=== PATIENT | female | born 1940 | race Caucasian/White ===

== ENCOUNTER 2018-01-11 20:17 | Inpatient (IN) | payer MEDICARE, OTHER ==
[2018-01-11] MEDS ORDERED: NORMAL SALINE 1000 ML 1,000 ML IV ONE ×2 (22:11)
[2018-01-11] MEDS ORDERED: ACETAMINOPHEN 325 MG TABLET PO ONE (22:12)
[2018-01-11 22:21] LABS: ABSOLUTE EOSINOPHILS # (AUTO) 0.1 10^3/uL (0.0-0.6); ABSOLUTE LYMPHOCYTES (AUTO) 1.3 10^3/uL (0.5-4.7); ABSOLUTE MONOCYTES (AUTO) 0.9 10^3/uL (0.1-1.4); ABSOLUTE NEUT (AUTO) 11.3 10^3/uL (1.7-8.2); BASOPHILS % (AUTO) 0.3 % (0-2); HEMATOCRIT 39.2 % (36.0-47.0); HEMOGLOBIN 13.1 g/dL (12.0-15.5); LYMPHOCYTES % (AUTO) 9.8 % (13-45); MEAN CORPUSCULAR HEMOGLOBIN 31.8 pg (27.0-33.4); MEAN CORPUSCULAR HGB CONC 33.5 g/dL (32.0-36.0); MEAN CORPUSCULAR VOLUME 95 fl (80-97); MONOCYTES % (AUTO) 6.6 % (3-13); PLATELET COUNT 411 10^3/uL (150-450); RED BLOOD COUNT 4.13 10^6/uL (3.72-5.28); RED CELL DISTRIBUTION WIDTH 13.6 % (11.5-14.0); SEGMENTED NEUTROPHILS % (AUTO) 82.3 % (42-78); TOTAL CELLS COUNTED % (AUTO) 100 %; WHITE BLOOD COUNT 13.7 10^3/uL (4.0-10.5)
[2018-01-11] MEDS ORDERED: CEFEPIME 2 GM/D5W RTU 2 GM/50 ML RTUPB IV ONE (22:22)
[2018-01-11 22:27] LABS: INTERNATIONAL RATION (INR) 1.04; PROTHROMBIN TIME 14.1 SEC (11.4-15.4)
--- NOTE | 2018-01-11 22:27 | EKG REPORT ---
SEVERITY:- BORDERLINE ECG - SINUS RHYTHM PROBABLE LEFT ATRIAL ABNORMALITY : Confirmed by: Dayanara Cho MD 11-Jan-2018 22:26:48
--- NOTE | 2018-01-11 22:39 | ER Document Report ---
ED Respiratory Problem - General Chief Complaint: Shortness Of Breath Stated Complaint: LEFT ARM PAIN Time Seen by Provider: 01/11/18 21:40 Notes: Pt. is a 77-year-old female presenting to the emergency department complaining of shortness of breath and chest pain. Patient stated on 01/08 she went to [place] emergency department was diagnosed with pneumonia. Patient stated she was put on Cipro and has been taking it for the last 3 days. Patient states that she feels as though she has had chills and a subjective fever for the last 10 days today took her temperature and it was 102.5 Fahrenheit. Stated she was having intermittent chest pressure moving down her left arm and into her left neck. Currently is stating she has no chest discomfort. Patient admits to URI symptoms, fever, posttussive vomiting, body aches, headache, joint pain. Patient denies any diarrhea or body rashes, also denies abdominal pain, dysuria. Patient has an extensive history of Lyme's disease since 1990 and thought she was having a Lyme's flareup 2 weeks ago and called her physician in [place] who put her on doxy. Patient stated she was to take Doxy twice a day for 2 weeks and just finished her last dose this morning. Patient states she has felt worn down for the last 2 weeks. Also admits to being exposed to " toxic mold" in her house. Patient denies any hospital admissions over the last 3 months. Past medical history: Lyme's disease, hypothyroid, migraines, arthritis Medications: Imitrex, Synthroid, progesterone, estrogen implant Allergies: Rocephin (Pt. stated she was on Rocephin for over a week IV and had an increase in her liver enzymes. Pt. denied rash, itching, or trouble breathing ) TRAVEL OUTSIDE OF THE [place] IN LAST 30 DAYS: No - Related Data Allergies/Adverse Reactions: ceftriaxone [From Rocephin] Allergy (Verified 01/12/18 05:53) Past Medical History - Social History Smoking Status: Never Smoker Drug Abuse: None Lives with: Family Family History: Reviewed & Not Pertinent Patient has suicidal ideation: No Patient has homicidal ideation: No Renal/ Medical History: Denies: Hx Peritoneal Dialysis Review of Systems - Review of Systems Constitutional: See HPI EENT: See HPI Cardiovascular: See HPI Respiratory: See HPI Gastrointestinal: See HPI Genitourinary: See HPI Female Genitourinary: No symptoms reported Musculoskeletal: No symptoms reported Skin: No symptoms reported Hematologic/Lymphatic: No symptoms reported Neurological/Psychological: No symptoms reported Physical Exam - Vital signs Vitals: Temp Pulse Resp BP Pulse Ox 100.5 F H 100 18 122/61 94 01/11/18 20:36 01/11/18 20:36 01/11/18 20:36 01/11/18 20:36 01/11/18 20:36 - Notes Notes: GENERAL: Alert, interacts well. No acute distress. Non-Toxic appearing HEAD: Normocephalic, atraumatic. FROM neck but pt. does admit to pain back of her head down her cervical neck, denies trauma. EYES: Pupils equal, round, and reactive to light. Extraocular movements intact. ENT: Oral mucosa moist, tongue midline. NECK: Full range of motion. Supple. Trachea midline. Pt. admits to pain left side of neck (paraspinal) and stated some "stiffness" in her cervical neck and into her occiput. Denies trauma. LUNGS: Slightly diminished bilateral bases no active wheeze, rales or rhonchi heard. No respiratory distress. HEART: Regular rate and rhythm. No murmur ABDOMEN: Soft, non-tender. Non-distended. Bowel sounds present in all 4 quadrants. EXTREMITIES: Moves all 4 extremities spontaneously. No edema, normal radial and dorsalis pedis pulses bilaterally. No cyanosis. BACK: no cervical, thoracic, lumbar midline tenderness. No saddle anesthesia, normal distal neurovascular exam. NEUROLOGICAL: Alert and oriented x3. Normal speech. PSYCH: Normal affect, normal mood. SKIN: Warm, dry, normal turgor. No rashes or lesions noted. Course - Re-evaluation Re-evalutation: Discussed with Pt. due to her leukocytosis without signs of pneumonia, urinary tract infection, skin infection, abdominal pain (abdominal infection) a lumbar puncture is recommended. Patient stated she was actually going to ask staff if we could do a lumbar puncture in hopes to find a source of her fever. LP unsuccessful, due to Pt. presention with headache and neck pain/stiffness, likely viral meningitis. Pt. Alert and oriented the entire time in ED, non toxic , nonencephalopathic. Discussed Pt. presentation with Dr. Barbosa who also agrees with admit. Dr. Restrepo contacted who stated she will see the pt. in the ED, no other orders at this time. - Vital Signs Vital signs: Temp Pulse Resp BP Pulse Ox 97.9 F 100 15 119/77 95 01/12/18 03:25 01/11/18 20:54 01/12/18 05:01 01/12/18 05:01 01/12/18 05:01 - Laboratory Result Diagrams: 01/11/18 22:03 01/11/18 22:03 Laboratory results interpreted by me: 01/11/18 01/11/18 01/11/18 22:03 22:03 22:16 WBC 13.7 H Seg Neutrophils % 82.3 H Lymphocytes % 9.8 L Absolute Neutrophils 11.3 H Sodium 135.8 L Glucose 126 H AST 38 H Ur Leukocyte Esterase TRACE H Procedures - Lumbar Puncture Lumbar puncture Consent obtained: Yes Lumbar puncture pre-procedure: Sterile PPE donned, Betadine prep applied Patient position: Sitting Needle size: 22 Lumbar puncture location: L4 Anesthetic type: 1% Lidocaine mL's of anesthetic: 3 Number of attempts: 2 Complications: No Notes: unable to obtain CSF. Pt. tolerated procedure well. Discharge - Discharge Clinical Impression: Fever Qualifiers: Fever type: unspecified Qualified Code(s): R50.9 - Fever, unspecified Headache Qualifiers: Headache type: unspecified Headache chronicity pattern: acute headache Intractability: not intractable Qualified Code(s): R51 - Headache Leukocytosis Qualifiers: Leukocytosis type: unspecified Qualified Code(s): D72.829 - Elevated white blood cell count, unspecified Condition: Stable Disposition: ADMITTED INPATIENT Admitting Provider: Hospitalist Unit Admitted: Telemetry
[2018-01-11 22:40] LABS: ALANINE AMINOTRANSFERASE 43 U/L (9-52); ALBUMIN 3.5 g/dL (3.5-5.0); ALKALINE PHOSPHATASE 104 U/L (38-126); ANION GAP 11 (5-19); ASPARTATE AMINO TRANSFERASE 38 U/L (14-36); BILIRUBIN,DIRECT 0.4 mg/dL (0.0-0.4); BILIRUBIN,TOTAL 0.5 mg/dL (0.2-1.3); BLOOD UREA NITROGEN 12 mg/dL (7-20); CARBON DIOXIDE 23 mmol/L (22-30); CHLORIDE 102 mmol/L (98-107); GLUCOSE 126 mg/dL (75-110); POTASSIUM 4.2 mmol/L (3.6-5.0); SODIUM 135.8 mmol/L (137-145); TOTAL PROTEIN 6.5 g/dL (6.3-8.2)
[2018-01-11 22:44] LABS: APPEARANCE,URINE SLIGHTLY-CLOUDY; BILIRUBIN,URINE NEGATIVE (NEGATIVE); COLOR,URINE YELLOW; GLUCOSE, URINE NEGATIVE (NEGATIVE); KETONES,URINE NEGATIVE (NEGATIVE); LEUKOCYTE ESTERASE,URINE TRACE (NEGATIVE); NITRITE,URINE NEGATIVE (NEGATIVE); PROTEIN,URINE NEGATIVE (NEGATIVE); URINE SPECIFIC GRAVITY 1.006; UROBILINOGEN,URINE NEGATIVE mg/dL (<2.0)
[2018-01-11 23:05] LABS: CREATINE KINASE MB 0.56 ng/mL (<4.55); TROPONIN I < 0.012 ng/mL
[2018-01-11 23:09] LABS: CREATINE KINASE 111 U/L (30-135)
[2018-01-11] MEDS ORDERED: METOCLOPRAMIDE HCL INJ/PF 10 MG/2 ML SDV IV ONE (23:50)
[2018-01-12 00:41] LABS: VENOUS BLOOD BASE EXCESS -1.7 mmol/L; VENOUS BLOOD PH 7.39 (7.30-7.42)
--- NOTE | 2018-01-12 00:53 | RADIOLOGY REPORT (SQ) ---
Chest single view on 01/11/2018 at 10:33 PM CLINICAL INDICATION: Shortness of breath COMPARISON: None FINDINGS: There is minimal basilar atelectasis. Biapical scarring is noted. The lungs are otherwise clear. Cardiac, hilar and mediastinal contours are within normal limits. Pulmonary vascularity is within normal limits. No bony abnormality is noted. IMPRESSION: No acute disease.
[2018-01-12] MEDS ORDERED: LIDOCAINE 1% INJ-PF (10 MG/ML) 30 ML SDV INJ ONE (01:29)
[2018-01-12] MEDS ORDERED: OXYCODONE-ACETAMINOPHEN 5-325 MG TABLET PO ONE (03:12)
[2018-01-12] MEDS ORDERED: ACETAMINOPHEN 325 MG TABLET PO PRN (05:11)
[2018-01-12] MEDS ORDERED: MAG HYDROX/AL HYDROX/SIMETH SUSP 30 ML UDCUP PO PRN (05:11)
[2018-01-12] MEDS ORDERED: PROMETHAZINE HCL 25 MG TABLET PO PRN (05:11)
[2018-01-12] MEDS ORDERED: PROMETHAZINE HCL INJ 25 MG/1 ML VIAL IV PRN (05:11)
--- NOTE | 2018-01-12 05:59 | PDOC H&P ---
History of Present Illness Admission Date/PCP: 01/12/18 03:08 Michelle Bernal MD Patient complains of: Fever History of Present Illness: ILYA HOLLAND is a 77 year old female who comes to the emergency department complaining of shaking chills and feeling cold intermittently for about 3 weeks. Last Tuesday she started with cough, subjective fever, bilateral ear pain , sore throat, sweating, dry mouth, chills and shaking, she did not take her temperature, on Tuesday she went to [place] as per symptoms persisted and an x- ray was done and she was told that she has pneumonia, she was placed on ciprofloxacin and sent home. She was told if she was not feeling better in 48 hours to call her family physician, she did was not in town and was sent to the emergency department. Tells me that she is still have some cough with pinkish phlegm, before was yellowish, tells me that she to her temperature at home and was 102,5 in the afternoon, has been having some wheezing on and off, shortness of breath on and off. Also has been complaining of headache and some stiff neck that by the time he went to see her has almost resolved. Slice chest pressure. Give me history of epidural injection a few months ago and since then she has not been feeling good woozy, dizzy. Tells me she has history of Lyme disease with relapsed 3, she thought symptoms were secondary to this, her PCP placed her on doxycycline for 2 weeks, last pill was a couple of days ago. Tells me that she has had mold problems in her house. Chest x-ray in the ED negative, T-max 100.5 Past Medical History Neurological Medical History: Reports: Migraine Endocrine Medical History: Reports: Hypothyroidism Musculoskeltal Medical History: Reports: Arthritis Infectious Medical History: Denies: Other Infectious History Note: Lyme disease Past Surgical History Past Surgical History: Reports: Cholecystectomy, Hysterectomy Social History Lives with: Family Smoking Status: Never Smoker Frequency of Alcohol Use: None Hx Recreational Drug Use: No Hx Prescription Drug Abuse: No Family History Family History: Reviewed & Not Pertinent Family History: Mother at 63 years old with liver cirrhosis. She does not know about her father Parental Family History Reviewed: Yes - As above Children Family History Reviewed: NA Sibling(s) Family History Reviewed.: NA Medication/Allergy Allergies/Adverse Reactions: ceftriaxone [From Rocephin] Allergy (Verified 01/12/18 05:53) Review of Systems Review of Systems: As outlined above, others negative Physical Exam Vital Signs: Temp Pulse Resp BP Pulse Ox 97.9 F 100 15 119/77 95 01/12/18 03:25 01/11/18 20:54 01/12/18 05:01 01/12/18 05:01 01/12/18 05:01 Additional comments: General appearance: Well-developed, well-nourished, alert and cooperative, and appears to be in no acute distress Head: Normocephalic Eyes: PEERL, EOMI, vision is grossly intact. Ears: External auditory canal and tympanic membranes clear, hearing grossly intact. Nose: No nasal discharge. Throat: Oral cavity and pharynx normal. No inflammation, swelling, exudate or lesions. Neck: Neck supple, nontender without lymphadenopathy, masses or thyromegaly. Cardiac: Normal S1 and S2. No S3, S4 or murmurs. Rhythm is regular. There is no peripheral edema, cyanosis or pallor. Extremities are warm and well perfused. Capillary refill is less than 2 seconds. No carotid bruits. Lungs: Bilateral mild wheezing without rales, rhonchi, or diminished breath sounds. Not using accessory muscles. Abdomen: Positive bowel sounds. Soft. Nondistended, nontender. No guarding or rebound. No masses. No hepatosplenomegaly Extremities: No significant deformity or joint abnormality. No edema. Peripheral pulses intact. No varicosities. Neurological: Cranial nerves II through XII grossly intact. Strength and sensation symmetric and intact throughout. Reflexes 2+ throughout. Skin: Skin normal color, texture and turgor with no lesions or eruptions, warm and dry. Psychiatric: The mental examination revealed the patient was oriented to person , place, and time. The patient was able to demonstrate good judgment on recent , without hallucinations, abnormal affect or abnormal behaviors. Results EKG Comments: 01/11/18 01/11/18 01/11/18 22:03 22:03 22:03 WBC 13.7 H RBC 4.13 Hgb 13.1 Hct 39.2 MCV 95 MCH 31.8 MCHC 33.5 RDW 13.6 Plt Count 411 Seg Neutrophils % 82.3 H Lymphocytes % 9.8 L Monocytes % 6.6 Eosinophils % 1.0 Basophils % 0.3 Absolute Neutrophils 11.3 H Absolute Lymphocytes 1.3 Absolute Monocytes 0.9 Absolute Eosinophils 0.1 Absolute Basophils 0.0 PT 14.1 INR 1.04 VBG pH VBG pCO2 VBG HCO3 VBG Base Excess Sodium 135.8 L Potassium 4.2 Chloride 102 Carbon Dioxide 23 Anion Gap 11 BUN 12 Creatinine 0.74 Est GFR ( Amer) > 60 Est GFR (Non-Af Amer) > 60 Glucose 126 H Calcium 10.0 Total Bilirubin 0.5 Direct Bilirubin 0.4 AST 38 H ALT 43 Alkaline Phosphatase 104 Creatine Kinase 111 CK-MB (CK-2) Troponin I Total Protein 6.5 Albumin 3.5 Urine Color Urine Appearance Urine pH Ur Specific [place] Urine Protein Urine Glucose (UA) Urine Ketones Urine Blood Urine Nitrite Urine Bilirubin Urine Urobilinogen Ur Leukocyte Esterase Urine WBC (Auto) Urine RBC (Auto) Squamous Epi Cells Auto Urine Ascorbic Acid 01/11/18 01/11/18 01/12/18 22:03 22:16 00:30 WBC RBC Hgb Hct MCV MCH MCHC RDW Plt Count Seg Neutrophils % Lymphocytes % Monocytes % Eosinophils % Basophils % Absolute Neutrophils Absolute Lymphocytes Absolute Monocytes Absolute Eosinophils Absolute Basophils PT INR VBG pH 7.39 VBG pCO2 39.0 VBG HCO3 23.0 VBG Base Excess -1.7 Sodium Potassium Chloride Carbon Dioxide Anion Gap BUN Creatinine Est GFR ( Amer) Est GFR (Non-Af Amer) Glucose Calcium Total Bilirubin Direct Bilirubin AST ALT Alkaline Phosphatase Creatine Kinase CK-MB (CK-2) 0.56 Troponin I < 0.012 Total Protein Albumin Urine Color YELLOW Urine Appearance SLIGHTLY-CLOUDY Urine pH 6.0 Ur Specific [place] 1.006 Urine Protein NEGATIVE Urine Glucose (UA) NEGATIVE Urine Ketones NEGATIVE Urine Blood NEGATIVE Urine Nitrite NEGATIVE Urine Bilirubin NEGATIVE Urine Urobilinogen NEGATIVE Ur Leukocyte Esterase TRACE H Urine WBC (Auto) 6 Urine RBC (Auto) 1 Squamous Epi Cells Auto 12 Urine Ascorbic Acid NEGATIVE 01/12/18 02:41 WBC RBC Hgb Hct MCV MCH MCHC RDW Plt Count Seg Neutrophils % Lymphocytes % Monocytes % Eosinophils % Basophils % Absolute Neutrophils Absolute Lymphocytes Absolute Monocytes Absolute Eosinophils Absolute Basophils PT INR VBG pH VBG pCO2 VBG HCO3 VBG Base Excess Sodium Potassium Chloride Carbon Dioxide Anion Gap BUN Creatinine Est GFR ( Amer) Est GFR (Non-Af Amer) Glucose Calcium Total Bilirubin Direct Bilirubin AST ALT Alkaline Phosphatase Creatine Kinase CK-MB (CK-2) Troponin I < 0.012 Total Protein Albumin Urine Color Urine Appearance Urine pH Ur Specific [place] Urine Protein Urine Glucose (UA) Urine Ketones Urine Blood Urine Nitrite Urine Bilirubin Urine Urobilinogen Ur Leukocyte Esterase Urine WBC (Auto) Urine RBC (Auto) Squamous Epi Cells Auto Urine Ascorbic Acid Impressions: Chest X-Ray 01/11/18 21:41 IMPRESSION: No acute disease. Assessment & Plan - Diagnosis (1) Fever Qualifiers: Fever type: unspecified Qualified Code(s): R50.9 - Fever, unspecified Is this a current diagnosis for this admission?: Yes Plan: Patient comes with respiratory symptoms and some general symptoms, states fever at home was 102.5, and daily 100.5. As per her history I believe she started with upper respiratory infection last Tuesday which is resolving now with reactive airway disease. It is unclear to me if she had pneumonia or not has been too soon for the infiltrates to completely resolve in the chest x-ray, will have to get the records, she might be diagnosed with clinical pneumonia. I am placing the patient on p.o. clindamycin. Do not feel that the patient needs to be on IV antibiotics however we have to follow her blood cultures. Mold at home and be playing a role in her symptomatology. Patient is non- smoker. 2 L of IV fluids given in the ED. Leukocytosis of 13.7 with left shift. There was a concern in the ED for meningitis, as she was complaining of some headaches and neck stiffness but symptoms at the time of my evaluation are not consistent with it, do not feel the patient needs an LP. Patient recently treated for a possible Lyme disease flare, completed 2 weeks of doxycycline. (2) Hypothyroidism Is this a current diagnosis for this admission?: Yes Plan: Continue with home medication - Time Time Spent: 30 to 50 Minutes
[2018-01-12] MEDS: CLINDAMYCIN HCL 150 MG CAPSULE PO SCH ×3 (06:12→22:45)
[2018-01-12] MEDS: NORMAL SALINE 1000 ML 1,000 ML IV PRN (06:12)
[2018-01-12 06:28] LABS: ABSOLUTE BASOPHILS # (AUTO) 0.1 10^3/uL (0.0-0.2); ABSOLUTE EOSINOPHILS # (AUTO) 0.4 10^3/uL (0.0-0.6); ABSOLUTE LYMPHOCYTES (AUTO) 2.8 10^3/uL (0.5-4.7); ABSOLUTE MONOCYTES (AUTO) 0.9 10^3/uL (0.1-1.4); ABSOLUTE NEUT (AUTO) 6.9 10^3/uL (1.7-8.2); BASOPHILS % (AUTO) 0.6 % (0-2); EOSINOPHILS % (AUTO) 3.5 % (0-6); HEMATOCRIT 39.8 % (36.0-47.0); HEMOGLOBIN 13.4 g/dL (12.0-15.5); MEAN CORPUSCULAR HEMOGLOBIN 32.5 pg (27.0-33.4); MEAN CORPUSCULAR HGB CONC 33.7 g/dL (32.0-36.0); MEAN CORPUSCULAR VOLUME 97 fl (80-97); MONOCYTES % (AUTO) 8.5 % (3-13); PLATELET COUNT 350 10^3/uL (150-450); RED BLOOD COUNT 4.13 10^6/uL (3.72-5.28); RED CELL DISTRIBUTION WIDTH 14.1 % (11.5-14.0); SEGMENTED NEUTROPHILS % (AUTO) 62.4 % (42-78); TOTAL CELLS COUNTED % (AUTO) 100 %; WHITE BLOOD COUNT 11.1 10^3/uL (4.0-10.5)
[2018-01-12 06:44] LABS: ANION GAP 8 (5-19); BLOOD UREA NITROGEN 11 mg/dL (7-20); CALCIUM 9.5 mg/dL (8.4-10.2); CARBON DIOXIDE 24 mmol/L (22-30); CHLORIDE 109 mmol/L (98-107); GLUCOSE 99 mg/dL (75-110); POTASSIUM 4.3 mmol/L (3.6-5.0); SODIUM 140.6 mmol/L (137-145)
[2018-01-12] MEDS: ENOXAPARIN SODIUM INJ 40 MG/0.4 ML DISP.SYRIN SUBCUT SCH (10:27)
--- NOTE | 2018-01-12 17:06 | Progress Note ---
Provider Note Provider Note: This patient was admitted early this morning by my colleague, Sophie Restrepo. The patient is resting comfortably. She states that she came in due to generalized weakness and dizziness and generally not feeling well. She also states that she had a migraine this morning. She has received Imitrex for her migraine this morning. She is awake, alert, and oriented x 3. No acute distress. Heart and lung sounds are within normal limits. The abdomen is soft, non-tender, non- distended.She complains of having upper respiratory symptoms. Will treat URI with flonase and prednisone.
[2018-01-12] MEDS: PREDNISONE 20 MG TABLET PO SCH (17:32)
[2018-01-12] MEDS: FLUTICASONE NASAL SPRAY 50 MCG/SPRY 120 SPRAY/16 GM NASL SCH (22:45)
[2018-01-13] MEDS: ZOLPIDEM TARTRATE 5 MG TABLET PO PRN ×2 (00:17→22:14)
[2018-01-13] MEDS: CLINDAMYCIN HCL 150 MG CAPSULE PO SCH ×3 (06:44→22:18)
[2018-01-13] MEDS: IPRATROPIUM/ALBUTEROL 0.5-2.5 MG/3 ML AMPUL NEB PRN (08:09)
[2018-01-13] MEDS: ENOXAPARIN SODIUM INJ 40 MG/0.4 ML DISP.SYRIN SUBCUT SCH (09:59)
[2018-01-13] MEDS: FLUTICASONE NASAL SPRAY 50 MCG/SPRY 120 SPRAY/16 GM NASL SCH ×2 (09:59→22:14)
[2018-01-13] MEDS: GUAIFENESIN SYRP 200 MG/10 ML UDC PO PRN ×2 (09:59→17:29)
[2018-01-13] MEDS: BENZONATATE 100 MG CAPSULE PO SCH ×2 (15:14→22:14)
[2018-01-13] MEDS: LEVOFLOXACIN 750 MG/D5W RTU 750 MG/150 ML RTUPB IV SCH (17:28)
[2018-01-13] MEDS: PREDNISONE 20 MG TABLET PO SCH (17:29)
[2018-01-13] MEDS: NORMAL SALINE 1000 ML 1,000 ML IV PRN (22:15)
[2018-01-14] MEDS: BENZONATATE 100 MG CAPSULE PO SCH ×3 (05:14→21:38)
[2018-01-14] MEDS: CLINDAMYCIN HCL 150 MG CAPSULE PO SCH ×3 (05:14→21:38)
[2018-01-14] MEDS: IPRATROPIUM/ALBUTEROL 0.5-2.5 MG/3 ML AMPUL NEB PRN (07:57)
[2018-01-14] MEDS: LEVOFLOXACIN 750 MG/D5W RTU 750 MG/150 ML RTUPB IV SCH (09:31)
[2018-01-14] MEDS: FLUTICASONE NASAL SPRAY 50 MCG/SPRY 120 SPRAY/16 GM NASL SCH ×2 (09:32→21:39)
[2018-01-14] MEDS: ENOXAPARIN SODIUM INJ 40 MG/0.4 ML DISP.SYRIN SUBCUT SCH (09:37)
--- NOTE | 2018-01-14 11:11 | PDOC PROGRESS REPORT ---
Subjective Progress Note for:: 01/13/18 Subjective:: Still c/o cough and headache Reason For Visit: FEVER Physical Exam Vital Signs: Temp Pulse Resp BP Pulse Ox 97.9 F 83 14 124/62 93 01/14/18 07:22 01/14/18 07:57 01/14/18 07:57 01/14/18 07:22 01/14/18 07:57 Intake & Output 01/13/18 01/14/18 01/15/18 06:59 06:59 06:59 Intake Total 2650 Output Total 1700 Balance 950 General appearance: PRESENT: no acute distress, well-developed, well-nourished Head exam: PRESENT: atraumatic, normocephalic Eye exam: PRESENT: conjunctiva pink, EOMI, PERRLA. ABSENT: scleral icterus Ear exam: PRESENT: normal external ear exam Mouth exam: PRESENT: moist, tongue midline Neck exam: ABSENT: carotid bruit, JVD, lymphadenopathy, thyromegaly Respiratory exam: PRESENT: crackles, decreased breath sounds, rhonchi, unlabored. ABSENT: rales, wheezes Cardiovascular exam: PRESENT: RRR, +S1, +S2. ABSENT: diastolic murmur, rubs, systolic murmur Pulses: PRESENT: normal dorsalis pedis pul Vascular exam: PRESENT: normal capillary refill GI/Abdominal exam: PRESENT: normal bowel sounds, soft. ABSENT: distended, guarding, mass, organolmegaly, rebound, tenderness Rectal exam: PRESENT: deferred Extremities exam: PRESENT: full ROM. ABSENT: calf tenderness, clubbing, pedal edema Neurological exam: PRESENT: alert, awake, oriented to person, oriented to place , oriented to time, oriented to situation, CN II-XII grossly intact. ABSENT: motor sensory deficit Psychiatric exam: PRESENT: appropriate affect, normal mood. ABSENT: homicidal ideation, suicidal ideation Skin exam: PRESENT: dry, intact, warm. ABSENT: cyanosis, rash Results Impressions: Chest X-Ray 01/11/18 21:41 IMPRESSION: No acute disease. Assessment & Plan - Time Time Spent with patient: 15-24 minutes Medications reviewed and adjusted accordingly: Yes Anticipated discharge: Home Within: within 72 hours - Inpatient Certification Based on my medical assessment, after consideration of the patient's comorbidities, presenting symptoms, or acuity I expect that the services needed warrant INPATIENT care.: Yes Medical Necessity: Need Close Monitoring Due to Risk of Patient Decompensation, Need for IV Antibiotics - Plan Summary Plan Summary: 1. Possible atypical Pneumonitis- abraham add Levaquin to regimen, cont clindamycin and reevaluate in am 2, Fever- resolved. 3, No clinical evidence of meningitis. Abraham continue to monitor
--- NOTE | 2018-01-14 11:23 | PDOC PROGRESS REPORT ---
Subjective Progress Note for:: 01/14/18 Subjective:: Still c/o cough with brownish sputum No headache, nausea or vomiting Reason For Visit: FEVER Physical Exam Vital Signs: Temp Pulse Resp BP Pulse Ox 97.9 F 83 14 124/62 93 01/14/18 07:22 01/14/18 07:57 01/14/18 07:57 01/14/18 07:22 01/14/18 07:57 Intake & Output 01/13/18 01/14/18 01/15/18 06:59 06:59 06:59 Intake Total 2650 Output Total 1700 Balance 950 General appearance: PRESENT: no acute distress, well-developed, well-nourished Head exam: PRESENT: atraumatic, normocephalic Eye exam: PRESENT: conjunctiva pink, EOMI, PERRLA. ABSENT: scleral icterus Ear exam: PRESENT: normal external ear exam Mouth exam: PRESENT: moist, tongue midline Neck exam: ABSENT: carotid bruit, JVD, lymphadenopathy, thyromegaly Respiratory exam: PRESENT: crackles, decreased breath sounds, rhonchi, unlabored. ABSENT: rales, tachypnea, wheezes Cardiovascular exam: PRESENT: RRR. ABSENT: diastolic murmur, rubs, systolic murmur Pulses: PRESENT: normal dorsalis pedis pul Vascular exam: PRESENT: normal capillary refill GI/Abdominal exam: PRESENT: normal bowel sounds, soft. ABSENT: distended, guarding, mass, organolmegaly, rebound, tenderness Rectal exam: PRESENT: deferred Extremities exam: PRESENT: full ROM. ABSENT: calf tenderness, clubbing, pedal edema Neurological exam: PRESENT: alert, awake, oriented to person, oriented to place , oriented to time, oriented to situation, CN II-XII grossly intact. ABSENT: motor sensory deficit Psychiatric exam: PRESENT: appropriate affect, normal mood. ABSENT: homicidal ideation, suicidal ideation Skin exam: PRESENT: dry, intact, warm. ABSENT: cyanosis, rash Results Laboratory Results: 01/12/18 06:15 01/12/18 06:15 MCV 97 fl (80-97) 01/12/18 06:15 MCH 32.5 pg (27.0-33.4) 01/12/18 06:15 MCHC 33.7 g/dL (32.0-36.0) 01/12/18 06:15 RDW 14.1 % (11.5-14.0) H 01/12/18 06:15 Seg Neutrophils % 62.4 % (42-78) 01/12/18 06:15 Lymphocytes % 25.0 % (13-45) 01/12/18 06:15 Monocytes % 8.5 % (3-13) 01/12/18 06:15 Eosinophils % 3.5 % (0-6) 01/12/18 06:15 Basophils % 0.6 % (0-2) 01/12/18 06:15 Absolute Neutrophils 6.9 10^3/uL (1.7-8.2) 01/12/18 06:15 Absolute Lymphocytes 2.8 10^3/uL (0.5-4.7) 01/12/18 06:15 Absolute Monocytes 0.9 10^3/uL (0.1-1.4) 01/12/18 06:15 Absolute Eosinophils 0.4 10^3/uL (0.0-0.6) 01/12/18 06:15 Absolute Basophils 0.1 10^3/uL (0.0-0.2) 01/12/18 06:15 VBG pH 7.39 (7.30-7.42) 01/12/18 00:30 VBG pCO2 39.0 mmHg (35-63) 01/12/18 00:30 VBG HCO3 23.0 mmol/L (20-32) 01/12/18 00:30 VBG Base Excess -1.7 mmol/L 01/12/18 00:30 Chloride 109 mmol/L (98-107) H 01/12/18 06:15 Carbon Dioxide 24 mmol/L (22-30) 01/12/18 06:15 Anion Gap 8 (5-19) 01/12/18 06:15 Est GFR ( Amer) > 60 (>60) 01/12/18 06:15 Est GFR (Non-Af Amer) > 60 (>60) 01/12/18 06:15 Glucose 99 mg/dL (75-110) 01/12/18 06:15 Lactic Acid 1.2 mmol/L (0.7-2.1) 01/11/18 22:03 Calcium 9.5 mg/dL (8.4-10.2) 01/12/18 06:15 Total Bilirubin 0.5 mg/dL (0.2-1.3) 01/11/18 22:03 AST 38 U/L (14-36) H 01/11/18 22:03 ALT 43 U/L (9-52) 01/11/18 22:03 Alkaline Phosphatase 104 U/L (38-126) 01/11/18 22:03 Total Protein 6.5 g/dL (6.3-8.2) 01/11/18 22:03 Albumin 3.5 g/dL (3.5-5.0) 01/11/18 22:03 Urine Color YELLOW 01/11/18 22:16 Urine Appearance SLIGHTLY-CLOUDY 01/11/18 22:16 Urine pH 6.0 (5.0-9.0) 01/11/18 22:16 Ur Specific [place] 1.006 01/11/18 22:16 Urine Protein NEGATIVE mg/dL (NEGATIVE) 01/11/18 22:16 Urine Glucose (UA) NEGATIVE mg/dL (NEGATIVE) 01/11/18 22:16 Urine Ketones NEGATIVE mg/dL (NEGATIVE) 01/11/18 22:16 Urine Blood NEGATIVE (NEGATIVE) 01/11/18 22:16 Urine Nitrite NEGATIVE (NEGATIVE) 01/11/18 22:16 Ur Leukocyte Esterase TRACE (NEGATIVE) H 01/11/18 22:16 Urine WBC (Auto) 6 /HPF 01/11/18 22:16 Urine RBC (Auto) 1 /HPF 01/11/18 22:16 01/12/18 06:15 Throat Throat Culture - Final NORMAL JESSIE 01/11/18 22:16 Clean Catch Midstream Urine Culture - Final NO GROWTH 2 DAYS 01/11/18 01/11/18 01/12/18 22:03 22:03 02:41 Creatine Kinase 111 CK-MB (CK-2) 0.56 Troponin I < 0.012 < 0.012 Impressions: Chest X-Ray 01/11/18 21:41 IMPRESSION: No acute disease. Assessment & Plan - Time Time Spent with patient: 15-24 minutes Medications reviewed and adjusted accordingly: Yes Anticipated discharge: Home Within: within 72 hours - Inpatient Certification Based on my medical assessment, after consideration of the patient's comorbidities, presenting symptoms, or acuity I expect that the services needed warrant INPATIENT care.: Yes Medical Necessity: Need for IV Antibiotics, Risk of Complication if Not Cared For in Hospital - Plan Summary Plan Summary: Possible pnemonitis, atypical versus bronchitis- Cont Levaquin. Obtain CT chest as she still has bronchial breathing Cont steroids, bronchodilators
[2018-01-14] MEDS: PREDNISONE 20 MG TABLET PO SCH ×2 (12:12→17:27)
--- NOTE | 2018-01-14 15:14 | RADIOLOGY REPORT (SQ) ---
EXAM DESCRIPTION: CT CHEST WITH COMPLETED DATE/TIME: 01/14/2018 2:51 pm REASON FOR STUDY: Bronchial breathing, ? atypical PNA COMPARISON: Chest x-ray dated 01/11/2018. TECHNIQUE: CT scan of the chest performed using helical scanning technique with dynamic intravenous contrast injection. Images reviewed with lung, soft tissue and bone windows. Reconstructed coronal and sagittal MPR and MIP images reviewed. All images stored on PACS. All CT scanners at this facility use dose modulation, iterative reconstruction, and/or weight based d osing when appropriate to reduce radiation dose to as low as reasonably achievable (ALARA). [facility]: Dose Right [facility]: CareDose [facility]: Dose Right [facility]: Teradose 4D [facility]: Amprius CONTRAST TYPE AND DOSE: contrast/concentration: Isovue 350.00 mg/ml; Total Contrast Delivered: 80.0 ml; Total Saline Delivered: 55.0 ml RENAL FUNCTION: BUN 11 creatinine 0.66. RADIATION DOSE: CT Rad equipment meets quality standard of care and radiation dose reduction techniq ues were employed. CTDIvol: 6.4 mGy. DLP: 240 mGy-cm. . LIMITATIONS: None. FINDINGS: LUNGS AND PLEURA: No opacities, nodules, masses. No pneumothorax. No effusions. HILAR AND MEDIASTINAL STRUCTURES: No identified masses or abnormal nodes. HEART AND VASCULAR STRUCTURES: No aneurysm or dissection. No central pulmonary emboli. No pericardi al effusion. HARDWARE: None in the chest. UPPER ABDOMEN: No significant findings. Limited exam. THYROID AND OTHER SOFT TISSUES: No masses. No adenopathy. BONES: No significant finding. OTHER: No other significant finding. IMPRESSION: NORMAL CT OF THE CHEST WITH IV CONTRAST. TECHNICAL DOCUMENTATION: JOB ID: [id number] Quality ID # [id number]: Final reports with documentation of one or more dose reduction techniques (e.g., Au tomated exposure control, adjustment of the mA and/or kV according to patient size, use of iterative reconstruction technique) 2010 [employer]- All Rights Reserved Reading location - IP/workstation name: [email or web address]
[2018-01-14] MEDS: ZOLPIDEM TARTRATE 5 MG TABLET PO PRN (21:38)
[2018-01-15 05:46] LABS: ABSOLUTE LYMPHOCYTES (AUTO) 1.7 10^3/uL (0.5-4.7); ABSOLUTE MONOCYTES (AUTO) 0.5 10^3/uL (0.1-1.4); ABSOLUTE NEUT (AUTO) 8.1 10^3/uL (1.7-8.2); BASOPHILS % (AUTO) 0.3 % (0-2); HEMOGLOBIN 11.9 g/dL (12.0-15.5); LYMPHOCYTES % (AUTO) 16.9 % (13-45); MEAN CORPUSCULAR HEMOGLOBIN 32.1 pg (27.0-33.4); MEAN CORPUSCULAR VOLUME 95 fl (80-97); MONOCYTES % (AUTO) 4.7 % (3-13); PLATELET COUNT 441 10^3/uL (150-450); RED CELL DISTRIBUTION WIDTH 13.8 % (11.5-14.0); SEGMENTED NEUTROPHILS % (AUTO) 78.1 % (42-78); TOTAL CELLS COUNTED % (AUTO) 100 %; WHITE BLOOD COUNT 10.3 10^3/uL (4.0-10.5)
[2018-01-15] MEDS: BENZONATATE 100 MG CAPSULE PO SCH ×3 (06:05→22:08)
[2018-01-15] MEDS: CLINDAMYCIN HCL 150 MG CAPSULE PO SCH ×3 (06:05→22:07)
[2018-01-15 06:19] LABS: BLOOD UREA NITROGEN 13 mg/dL (7-20); CALCIUM 9.2 mg/dL (8.4-10.2); CHLORIDE 108 mmol/L (98-107); POTASSIUM 4.3 mmol/L (3.6-5.0)
[2018-01-15 07:01] LABS: GLUCOSE 120 mg/dL (75-110)
[2018-01-15 07:26] LABS: ANION GAP 5 (5-19); CARBON DIOXIDE 26 mmol/L (22-30); SODIUM 138.9 mmol/L (137-145)
[2018-01-15] MEDS: LEVOFLOXACIN 750 MG/D5W RTU 750 MG/150 ML RTUPB IV SCH (09:22)
[2018-01-15] MEDS: FLUTICASONE NASAL SPRAY 50 MCG/SPRY 120 SPRAY/16 GM NASL SCH ×2 (09:23→22:08)
[2018-01-15] MEDS: PREDNISONE 20 MG TABLET PO SCH ×2 (09:23→17:16)
[2018-01-15] MEDS: ENOXAPARIN SODIUM INJ 40 MG/0.4 ML DISP.SYRIN SUBCUT SCH (09:24)
--- NOTE | 2018-01-15 16:39 | PDOC PROGRESS REPORT ---
Subjective Progress Note for:: 01/15/18 Subjective:: Still c/o cough with brownish sputum No headache, nausea or vomiting Reason For Visit: FEVER Physical Exam Vital Signs: Temp Pulse Resp BP Pulse Ox 98.1 F 76 16 123/59 L 97 01/15/18 16:00 01/15/18 16:00 01/15/18 16:00 01/15/18 16:00 01/15/18 16:00 Intake & Output 01/14/18 01/15/18 01/16/18 06:59 06:59 06:59 Intake Total 2650 3111 150 Output Total 1700 2900 Balance 950 211 150 General appearance: PRESENT: no acute distress, well-developed, well-nourished Head exam: PRESENT: atraumatic, normocephalic Eye exam: PRESENT: conjunctiva pink, EOMI, PERRLA. ABSENT: scleral icterus Ear exam: PRESENT: normal external ear exam Mouth exam: PRESENT: moist, tongue midline Neck exam: ABSENT: carotid bruit, JVD, lymphadenopathy, thyromegaly Respiratory exam: PRESENT: crackles, decreased breath sounds, rhonchi. ABSENT: rales, wheezes Cardiovascular exam: PRESENT: RRR. ABSENT: diastolic murmur, rubs, systolic murmur Pulses: PRESENT: normal dorsalis pedis pul Vascular exam: PRESENT: normal capillary refill GI/Abdominal exam: PRESENT: normal bowel sounds, soft. ABSENT: distended, guarding, mass, organolmegaly, rebound, tenderness Rectal exam: PRESENT: deferred Extremities exam: PRESENT: full ROM. ABSENT: calf tenderness, clubbing, pedal edema Neurological exam: PRESENT: alert, awake, oriented to person, oriented to place , oriented to time, oriented to situation, CN II-XII grossly intact. ABSENT: motor sensory deficit Psychiatric exam: PRESENT: appropriate affect, normal mood. ABSENT: homicidal ideation, suicidal ideation Skin exam: PRESENT: dry, intact, warm. ABSENT: cyanosis, rash Results Laboratory Results: 01/15/18 04:25 01/15/18 04:25 01/15/18 01/15/18 04:25 04:25 WBC 10.3 RBC 3.70 L Hgb 11.9 L Hct 35.0 L MCV 95 MCH 32.1 MCHC 34.0 RDW 13.8 Plt Count 441 Seg Neutrophils % 78.1 H Lymphocytes % 16.9 Monocytes % 4.7 Eosinophils % 0.0 Basophils % 0.3 Absolute Neutrophils 8.1 Absolute Lymphocytes 1.7 Absolute Monocytes 0.5 Absolute Eosinophils 0.0 Absolute Basophils 0.0 Sodium 138.9 Potassium 4.3 Chloride 108 H Carbon Dioxide 26 Anion Gap 5 BUN 13 Creatinine 0.59 Est GFR ( Amer) > 60 Est GFR (Non-Af Amer) > 60 Glucose 120 H Calcium 9.2 Impressions: Chest X-Ray 01/11/18 21:41 IMPRESSION: No acute disease. Chest CT 01/14/18 00:00 IMPRESSION: NORMAL CT OF THE CHEST WITH IV CONTRAST. Assessment & Plan - Time Time Spent with patient: 15-24 minutes Medications reviewed and adjusted accordingly: Yes Anticipated discharge: Home Within: within 24 hours - Inpatient Certification Based on my medical assessment, after consideration of the patient's comorbidities, presenting symptoms, or acuity I expect that the services needed warrant INPATIENT care.: Yes Medical Necessity: Failure to Improve With Outpatient Therapy, Need Close Monitoring Due to Risk of Patient Decompensation, Need for Nebulizer Therapy and Monitoring of Response - Plan Summary Plan Summary: Possible pnemonitis, atypical versus bronchitis- Cont Levaquin. CT chest negative. Breathing is improved on steroids Cont steroids, bronchodilators Plan to dc in am
[2018-01-15] MEDS: ZOLPIDEM TARTRATE 5 MG TABLET PO PRN (22:08)
[2018-01-16] MEDS: BENZONATATE 100 MG CAPSULE PO SCH (06:18)
[2018-01-16] MEDS: CLINDAMYCIN HCL 150 MG CAPSULE PO SCH (06:18)
[2018-01-16] MEDS: IPRATROPIUM/ALBUTEROL 0.5-2.5 MG/3 ML AMPUL NEB PRN (08:52)
[2018-01-16] MEDS: LEVOFLOXACIN 750 MG/D5W RTU 750 MG/150 ML RTUPB IV SCH (09:17)
[2018-01-16] MEDS: PREDNISONE 20 MG TABLET PO SCH (09:17)
[2018-01-16] MEDS: FLUTICASONE NASAL SPRAY 50 MCG/SPRY 120 SPRAY/16 GM NASL SCH (09:17)
[2018-01-16] MEDS: ENOXAPARIN SODIUM INJ 40 MG/0.4 ML DISP.SYRIN SUBCUT SCH (09:20)
[2018-01-16 13:16] VITALS: BP 123/59
--- NOTE | 2018-01-16 17:40 | PDOC DISCHARGE SUMMARY ---
General - Admit/Disc Date/PCP Admission Date/Primary Care Provider: 01/13/18 16:52 Discharge Date: 01/16/18 - Additional Information Resuscitation Status: Full Code Discharge Diet: Regular Discharge Activity: Activity As Tolerated Prescriptions: Benzonatate [Tessalon Perles 100 mg Capsule] 100 mg PO Q8 #20 capsule Clindamycin HCl [Cleocin 150 mg Capsule] 300 mg PO Q8 #14 capsule Fluticasone Propionate [Flonase Nasal [place] 50 Mcg/[place] 16 gm] 1 spray NASL Q12 #1 spray.pump Levofloxacin [Levaquin 500 mg Tablet] 500 mg PO DAILY #5 tablet Methylprednisolone [Medrol Dosepack (4 mg/Tab) 21 Tab/Dosepak] 4 mg PO ASDIR PRN #21 tab.ds.pk PRN Reason: Home Medications: Acetaminophen [Tylenol Extra Strength] 500 mg PO Q4HP PRN 01/12/18 Ascorbic Acid [Vitamin C 500 mg Tablet] 500 mg PO BID 01/12/18 Calcium Carbonate/Vitamin D3 [Calcium 600 + Vit D Tablet] 1 tab PO BID 01/12/18 Sumatriptan Succinate [Imitrex 100 mg Tablet] 33.3 mg PO ASDIR PRN 01/12/18 Thyroid,Pork [[place] Thyroid] 30 mg PO QAM 01/12/18 Zolpidem Tartrate [Ambien 5 mg Tablet] 5 mg PO QHS 01/12/18 Benzonatate [Tessalon Perles 100 mg Capsule] 100 mg PO Q8 #20 capsule 01/16/18 Clindamycin HCl [Cleocin 150 mg Capsule] 300 mg PO Q8 #14 capsule 01/16/18 Fluticasone Propionate [Flonase Nasal [place] 50 Mcg/[place] 16 gm] 1 spray NASL Q12 #1 spray.pump 01/16/18 Guaifenesin [Robitussin Syrup 200 mg/10 ml Ud Cup] 200 mg PO Q4HP PRN udc 01/16 Levofloxacin [Levaquin 500 mg Tablet] 500 mg PO DAILY #5 tablet 01/16/18 Methylprednisolone [Medrol Dosepack (4 mg/Tab) 21 Tab/Dosepak] 4 mg PO ASDIR PRN #21 tab.ds.pk 01/16/18 History of Present Illness History of Present Illness: ILYA HOLLAND is a 77 year old female RICHARDKelvin FERNANDEZMOND is a 77 year old female who comes to the emergency department complaining of shaking chills and feeling cold intermittently for about 3 weeks. Last Tuesday she started with cough, subjective fever, bilateral ear pain , sore throat, sweating, dry mouth, chills and shaking, she did not take her temperature, on Tuesday she went to [facility] as per symptoms persisted and an x- ray was done and she was told that she has pneumonia, she was placed on ciprofloxacin and sent home. She was told if she was not feeling better in 48 hours to call her family physician, she did was not in town and was sent to the emergency department. Tells me that she is still have some cough with pinkish phlegm, before was yellowish, tells me that she to her temperature at home and was 102,5 in the afternoon, has been having some wheezing on and off, shortness of breath on and off. Also has been complaining of headache and some stiff neck that by the time he went to see her has almost re Chest x-ray in the ED negative, T-max 100.5 Hospital Course Hospital Course: Patient was admitted with difficulty breathing and she was thought to have either partially treated pneumonia or atypical pneumonitis. She was started on antibiotics. She was apparently febrile on initial presentation. Subsequent CT scan done reveals no evidence of any infiltrates. Patient was placed on steroids and she actually improved once steroid was started on a higher dose. She was also placed on Levaquin in addition to clindamycin and patient continues to improve with resolution of her bronchial breathing and brought care of breath sounds. Oxygenation has been acceptable and patient has been ambulatory. She has been otherwise hemodynamically stable I would no further interventions been planned she is been discharged home for outpatient follow-up. Physical Exam Vital Signs: Temp Pulse Resp BP Pulse Ox 98.3 F 79 14 123/59 L 95 01/16/18 13:14 01/16/18 13:14 01/16/18 13:14 01/16/18 13:14 01/16/18 13:14 Intake & Output 01/15/18 01/16/18 01/17/18 06:59 06:59 06:59 Intake Total 3111 2702 150 Output Total 2900 2400 Balance 211 302 150 General appearance: PRESENT: no acute distress, well-developed, well-nourished Head exam: PRESENT: atraumatic, normocephalic Eye exam: PRESENT: conjunctiva pink, EOMI, PERRLA. ABSENT: scleral icterus Ear exam: PRESENT: normal external ear exam Mouth exam: PRESENT: moist, tongue midline Neck exam: ABSENT: carotid bruit, JVD, lymphadenopathy, thyromegaly Respiratory exam: PRESENT: decreased breath sounds, rhonchi, unlabored. ABSENT : rales, wheezes Cardiovascular exam: PRESENT: RRR. ABSENT: diastolic murmur, rubs, systolic murmur Pulses: PRESENT: normal dorsalis pedis pul Vascular exam: PRESENT: normal capillary refill GI/Abdominal exam: PRESENT: normal bowel sounds, soft. ABSENT: distended, guarding, mass, organolmegaly, rebound, tenderness Rectal exam: PRESENT: deferred Extremities exam: PRESENT: full ROM. ABSENT: calf tenderness, clubbing, pedal edema Neurological exam: PRESENT: alert, awake, oriented to person, oriented to place , oriented to time, oriented to situation, CN II-XII grossly intact. ABSENT: motor sensory deficit Psychiatric exam: PRESENT: appropriate affect, normal mood. ABSENT: homicidal ideation, suicidal ideation Skin exam: PRESENT: dry, intact, warm. ABSENT: cyanosis, rash Results Laboratory Results: 01/15/18 04:25 01/15/18 04:25 Impressions: Chest X-Ray 01/11/18 21:41 IMPRESSION: No acute disease. Chest CT 01/14/18 00:00 IMPRESSION: NORMAL CT OF THE CHEST WITH IV CONTRAST. Qualifiers - * PATIENT BEING DISCHARGED WITH ANY OF THE FOLLOWING DIAGNOSIS: No Plan Time Spent: Greater than 30 Minutes
== END 2018-01-16 13:10 | disposition home or self-care (01) | DRG 195 ==
LOC: ER 20:17 → INTOOBSV 01-12 03:08 → EH 01-12 03:08 → 5 01-12 18:45 → OBSVTOIN 01-13 16:52
PROVIDERS: ADMIT Internal Medicine; ATTEND Internal Medicine
PROC: 00JU3ZZ Inspection of Spinal Canal, Percutaneous Approach (ICD-10-PCS; principal; 2018-01-13)
DX: J18.9 Pneumonia, unspecified organism (principal); E03.9 Hypothyroidism, unspecified; M19.90 Unspecified osteoarthritis, unspecified site; D72.829 Elevated white blood cell count, unspecified; M43.6 Torticollis; Z53.8 Procedure and treatment not carried out for other reasons; G43.909 Migraine, unspecified, not intractable, without status migrainosus; Z79.899 Other long term (current) drug therapy; Z86.19 Personal history of other infectious and parasitic diseases; Z88.1 Allergy status to other antibiotic agents; Z77.120 Contact with and (suspected) exposure to mold (toxic); Z90.710 Acquired absence of both cervix and uterus; Z90.49 Acquired absence of other specified parts of digestive tract
CPT/HCPCS: 36415; 71045; 71260; 80048; 80053; 81001; 82550; 82553; 82803; 83605; 84484; 85025; 85610; 87040; 87070; 87086; 87880; 93005; 93010; 96361; 96374; 99285; G0378; J0692; J1650; J1956; J2765; J3490; J7512; J7620

== ENCOUNTER → 2018-04-11 | Outpatient (CLI) | payer MEDICARE, OTHER ==
--- NOTE | 2018-04-11 15:11 | RADIOLOGY REPORT (SQ) ---
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 TECHNIQUE: Multiplanar imaging includes noncontrasted T1, T2, FLAIR, diffusion with ADC map and post gadolinium contrast T1 sequences. Images stored on PACS. Additional thin section coronal and axial T2, T1 precontrast, T1 post contrasted images were obtained through the globes and orbits. CONTRAST TYPE AND DOSE: 14 mL Dotarem. RENAL FUNCTION: GFR > 60. LIMITATIONS: None. FINDINGS: ANATOMY: No developmental anomalies. Normal vascular flow voids. Pituitary fossa normal. CSF SPACES: Normal in size and contour. No hemorrhage. CEREBRUM: Sulci and gyri normal in size and contour. Normal white matter signal on FLAIR imaging. No evidence of hemorrhage, mass, or extraaxial fluid collection. No abnormal enhancement post contrast. POSTERIOR FOSSA: No signal alteration. No hemorrhage. No edema, masses, or mass effect. Internal peyton tory canals, cerebellopontine angles, mastoids normal. No enhancing lesions. No abnormal enhancement post contrast. DIFFUSION IMAGING: Negative for acute or subacute infarction. ORBITS: Globes are normal. Optic nerves are unremarkable. No masses or abnormal enhancement. No ab normal intrinsic signal. Extraocular muscles, lacrimal glands, intra and extraconal fat are all unre markable. PARANASAL SINUSES: No fluid levels. Mucosa normal. OTHER: No other significant finding. IMPRESSION: NORMAL MRI OF THE BRAIN AND ORBITS WITHOUT AND WITH INTRAVENOUS GADOLINIUM CONTRAST. EVIDENCE OF ACUTE STROKE: NO. TECHNICAL DOCUMENTATION: JOB ID: [id number]- All Rights Reserved Reading location - IP/workstation name: [email or web address]
== END ==
LOC: RAD 12:42
PROVIDERS: ATTEND Ophthalmology
DX: A69.22 Other neurologic disorders in Lyme disease (principal); H40.1231 Low-tension glaucoma, bilateral, mild stage
CPT/HCPCS: 82565; 70553; A9576

== ENCOUNTER 2020-04-03 09:35 | Day surgery (SDC) | payer MEDICARE, OTHER ==
[~2020-04-03 09:35] MED LIST: CHONDR SU A NA/HYALUR INTRAOC KIT (SURGICARE) ONE; DORZOLAMIDE HCL 2%/TIMOLOL MALEAT 0.5% OPH SOLN 10 ML OD PRN; EPINEPHRINE INJ/PF 1 MG/1 ML AMPULE ONE; KETOROLAC TROMETHAMINE 0.45% 4 DROP/0.4 ML DROPERETTE OD PRN; LIDOCAINE 1%/PHENYLEPHRINE 1.5% 1 ML VIAL ONE; PREDNISOLONE ACETATE 1% OPH SUSP 5 ML OD PRN
[2020-04-03] MEDS: BESIFLOXACIN HCL 0.6% OPH SUSP 5 ML BOTTLE OD PRN ×3 (10:10→11:08)
[2020-04-03] MEDS: CYCLOPENTOLATE 0.2%/PHENYLEPHRINE 1% OPH SOLN 2 ML OD PRN ×3 (10:10→10:32)
[2020-04-03] MEDS: TROPICAMIDE 1% OPH SOLN 15 ML OD PRN ×3 (10:10→10:32)
[2020-04-03] MEDS: TETRACAINE HCL 0.5% OPH SOLN 4 ML OD PRN ×3 (10:10→10:47)
[2020-04-03] MEDS ORDERED: MIDAZOLAM 2 MG/2 ML INJ ONE (10:31)
--- NOTE | 2020-04-03 12:01 | Operative Report ---
Operative Report-[facility] Operative Report: DATE OF SURGERY: 04/03/2020 PREOPERATIVE DIAGNOSIS: Cataract, right eye, Pupil Miosis POSTOPERATIVE DIAGNOSIS: Cataract, right eye, Pupil miosis OPERATION: Complex Cataract extraction with insertion of an IOL of the right eye and use of a maluygan ring due to pupil dilation of less than 4mm. Intraocular Lens Model: [22.5 diopter SN 60 WF] underwent surgery for difficulty seeing the television SURGEON: Shahid Ellison MD ANESTHESIA: Topical PROCEDURE: After obtaining appropriate consent, the patient's right eye was prepped and draped in a sterile fashion as well as the surgeon in the sterile manner and cataract surgery was started. First a paracentesis blade was used to make a side-port incision. Viscoelastic was used to inflate the anterior chamber. Next a 2.4 mm incision was made with a 2.4 mm blade, clear corneal temporarily. A malunion ring was inserted due to poor pupillary dilation A continuous capsulorrhexis was made using a cystotome and Utrata forceps. Following this hydrodissection was carried out to make the lens fully loose and mobile and it was rotated freely. Following this, a divide and conquer technique was used to phacoemulsify the lens. The remaining cortex was removed with an irrigation/aspiration. Provisc was instilled into the capsular bag to inflate the bag. The intraocular lens was placed. The remaining viscoelastic material was removed with irrigation/aspiration. Following this, the incision was found to be watertight. Prior to making the capsulorhexis a maluygan ring was inserted due to poor pupillary dilation. This was removed at the end of the case. Besivance and Cosopt was instilled into the eye and a protective shield was placed over the eye. The patient was returned to the postoperative recovery in a stable condition.
== END 2020-04-03 11:48 | disposition home or self-care (01) ==
LOC: SC 09:35
PROVIDERS: ATTEND Internal Medicine
DX: H25.811 Combined forms of age-related cataract, right eye (principal); H57.03 Miosis; M19.90 Unspecified osteoarthritis, unspecified site; E03.9 Hypothyroidism, unspecified; A69.20 Lyme disease, unspecified; H40.1231 Low-tension glaucoma, bilateral, mild stage; A69.22 Other neurologic disorders in Lyme disease; H17.89 Other corneal scars and opacities; H04.123 Dry eye syndrome of bilateral lacrimal glands; D31.31 Benign neoplasm of right choroid
CPT/HCPCS: 66982; V2632; J2250; J3490 ×2; A9270; J0171

== ENCOUNTER 2020-05-08 09:31 | Day surgery (SDC) | payer MEDICARE, OTHER ==
[~2020-05-08 09:31] MED LIST changes: -DORZOLAMIDE HCL 2%/TIMOLOL MALEAT 0.5% OPH SOLN 10 ML OD PRN; -KETOROLAC TROMETHAMINE 0.45% 4 DROP/0.4 ML DROPERETTE OD PRN; +KETOROLAC TROMETHAMINE 0.45% 4 DROP/0.4 ML DROPERETTE OS PRN; +MIDAZOLAM 2 MG/2 ML INJ ONE; -PREDNISOLONE ACETATE 1% OPH SUSP 5 ML OD PRN; +TRYPAN BLUE 0.06 % OPH SOLN 0.5 ML DISP.SYRIN ONE
[2020-05-08] MEDS: CYCLOPENTOLATE 0.2%/PHENYLEPHRINE 1% OPH SOLN 2 ML OS PRN ×3 (10:20→10:45)
[2020-05-08] MEDS: TETRACAINE HCL 0.5% OPH SOLN 4 ML OS PRN ×3 (10:20→10:51)
[2020-05-08] MEDS: BESIFLOXACIN HCL 0.6% OPH SUSP 5 ML BOTTLE OS PRN ×4 (10:20→11:20)
[2020-05-08] MEDS: TROPICAMIDE 1% OPH SOLN 15 ML OS PRN ×3 (10:20→10:45)
[2020-05-08] MEDS: PREDNISOLONE ACETATE 1% OPH SUSP 5 ML OS PRN ×2 (11:20)
[2020-05-08] MEDS: DORZOLAMIDE HCL 2%/TIMOLOL MALEAT 0.5% OPH SOLN 10 ML OS PRN ×2 (11:20)
--- NOTE | 2020-05-08 11:57 | Operative Report ---
[facility]: DATE OF SURGERY: 05/08/2020 PREOPERATIVE DIAGNOSIS: Cataract, left eye, Pupil Miosis POSTOPERATIVE DIAGNOSIS: Cataract, left eye, Pupil miosis OPERATION: Complex Cataract extraction with insertion of an IOL of the left eye and use of a maluygan ring due to pupil dilation of less than 4mm. Intraocular Lens Model: [22.5 SN 60 WF] Patient underwent surgery for difficulty seeing the road signs SURGEON: Shahid Ellison MD ANESTHESIA: Topical PROCEDURE: After obtaining appropriate consent, the patient's left eye was prepped and draped in a sterile fashion as well as the surgeon in the sterile manner and cataract surgery was started. First a paracentesis blade was used to make a side-port incision. Viscoelastic was used to inflate the anterior chamber. Next a 2.4 mm incision was made with a 2.4 mm blade, clear corneal temporarily. Prior to making the capsulorrhexis a maluygion ring was inserted due to poor pupillary dilation. A continuous capsulorrhexis was made using a cystotome and Utrata forceps. Following this hydrodissection was carried out to make the lens fully loose and mobile and it was rotated freely. Following this, a divide and conquer technique was used to phacoemulsify the lens.. The remaining cortex was removed with an irrigation/aspiration. Provisc was instilled into the capsular bag to inflate the bag. The intraocular lens was placed. The remaining viscoelastic material was removed with irrigation/aspiration. Following this, the incision was found to be watertight. Prior to making the capsulorhexis a maluygan ring was inserted due to poor pupillary dilation. This was removed at the end of the case. Besivance and Cosopt was instilled into the eye and a protective shield was placed over the eye. The patient was returned to the postoperative recovery in a stable condition.
== END 2020-05-08 11:55 | disposition home or self-care (01) ==
LOC: SC 09:31
PROVIDERS: ATTEND Internal Medicine
DX: H25.812 Combined forms of age-related cataract, left eye (principal); H57.03 Miosis; Z96.1 Presence of intraocular lens; M19.90 Unspecified osteoarthritis, unspecified site; E05.90 Thyrotoxicosis, unspecified without thyrotoxic crisis or storm; Z79.899 Other long term (current) drug therapy
CPT/HCPCS: 66982; 00142; V2632; J2250; J3490 ×2; A9270; J0171; 142